=== PATIENT | female | born 1940 | race Asian ===

== ENCOUNTER 2017-02-22 05:04 | Inpatient (IN) | payer MEDICARE, OTHER ==
[~2017-02-22] VITALS: Ht 157.5 cm; Wt 61.9 kg
[~2017-02-22 05:04] MED LIST: HYDR10TA31 PO
[2017-02-22] MEDS ORDERED: XALA2.5OS OU (05:15)
[2017-02-22] MEDS ORDERED: LINA5TAB PO (05:15)
[2017-02-22] MEDS ORDERED: MECL12.585 PO (05:15)
[2017-02-22] MEDS ORDERED: ASPI-556 PO (05:15)
[2017-02-22] MEDS ORDERED: NITR.4 SL (05:15)
[2017-02-22] MEDS ORDERED: MELO-267 PO (05:15)
[2017-02-22] MEDS ORDERED: LOSA100T29 PO (05:15)
[2017-02-22] MEDS ORDERED: ATOR40TA71 PO (05:15)
[2017-02-22] MEDS ORDERED: VITAD1000 PO (05:15)
[2017-02-22] MEDS ORDERED: CARV6.2534 PO (05:15)
[2017-02-22] MEDS ORDERED: AMLO-511 PO (05:15)
[2017-02-22 05:18] LABS: GLUCOSE COMMENT 1 Doctor Notified; GLUCOSE,POINT OF CARE 213 MG/DL (70-110)
[2017-02-22] MEDS ORDERED: ACETAMINOPHEN 1000 MG/ISO-OSM 100 ML IV ONE (06:30)
[2017-02-22] MEDS ORDERED: SODIUM CHLORIDE 0.9% 1,000 ML IV ONE (06:30)
[2017-02-22 07:03] LABS: HEMATOCRIT 37.1 % (36-46); HEMOGLOBIN 12.5 g/dL (12.0-16.0); MEAN CORPUSCULAR HEMOGLOBIN 29.9 pg (26.0-34.0); MEAN CORPUSCULAR HGB CONC 33.7 G/dL (31.0-37.0); MEAN CORPUSCULAR VOLUME 89 fL (80-100); PLATELET COUNT (AUTO) 226 K/uL (150-450); RED BLOOD CELL COUNT(AUTO) 4.19 MIL/uL (4.00-5.20); RED CELL DISTRIBUTION WIDTH 14.6 % (11.5-14.5); WHITE BLOOD COUNT (AUTO) 13.2 K/uL (4.5-11.0)
[2017-02-22 07:12] LABS: APPEARANCE,URINE CLEAR (CLEAR); GLUCOSE, URINE (UA) NEGATIVE (NEGATIVE); KETONES,URINE NEGATIVE (NEGATIVE); LEUKOCYTE ESTERASE ,URINE NEGATIVE (NEGATIVE); OCCULT BLOOD,URINE TRACE (NEGATIVE); PH,URINE 6.5 (5.0-8.0); PROTEIN,URINE TRACE (NEGATIVE)
[2017-02-22 07:14] LABS: CALCIUM, TOTAL 8.1 mg/dL (8.8-10.5); CREATININE 0.91 mg/dL (0.60-1.30); POTASSIUM 3.2 mmol/L (3.5-5.1)
[2017-02-22 07:15] LABS: ADD UA MICROSCOPIC YES
[2017-02-22 07:17] LABS: RBC,URINE 0-2 /HPF (0-2); SQUAMOUS EPITHELIAL CELL,UR Few /LPF (None Seen); WBC,URINE 0-2 /HPF (0-5)
[2017-02-22 07:20] LABS: ALBUMIN 3.4 g/dL (3.4-5.0); BILIRUBIN,TOTAL 0.6 mg/dL (0.1-1.0); TOTAL PROTEIN, SERUM 7.5 g/dL (6.4-8.2)
[2017-02-22 07:27] LABS: BAND NEUTROPHILS % (MANUAL) 9 % (1-5); LYMPHOCYTES % (MANUAL) 14 % (22-44); TOTAL CELLS COUNTED 100
[2017-02-22 07:28] LABS: RBC MORPHOLOGY COMMENT NORMAL RBC MORPH
[2017-02-22] MEDS ORDERED: FUROSEMIDE 40 MG/4 ML VIAL IVP ONE (07:45)
[2017-02-22] MEDS ORDERED: AZITHROMYCIN 500 MG/NS 250 ML IV ONE (07:45)
[2017-02-22] MEDS ORDERED: CefTRIAXone 1 GM/DEXTROSE 50 ML IV ONE (07:45)
[2017-02-22] MEDS ORDERED: MAGNESIUM HYDROXIDE SUSPENSION 30 ML UDCUP PO PRN (15:00)
[2017-02-22] MEDS ORDERED: MORPHINE SULFATE 2 MG/ML SYRINGE IVP PRN (15:00)
[2017-02-22] MEDS ORDERED: *CLINICAL-CEFTAROLINE DOSING CLINICAL ONE (15:00)
[2017-02-22] MEDS ORDERED: ZOLPIDEM TARTRATE 5 MG TABLET PO PRN (15:00)
[2017-02-22] MEDS ORDERED: ONDANSETRON HCL 4 MG/2 ML VIAL IVP PRN (15:00)
[2017-02-22] MEDS ORDERED: ACETAMINOPHEN 325 MG TABLET PO PRN (15:00)
[2017-02-22] MEDS ORDERED: HYDROCODONE/ACETAMINOPHEN 5-325 MG TABLET PO PRN (15:00)
[2017-02-22] MEDS ORDERED: MECLIZINE HCL 12.5 MG TABLET PO PRN (15:00)
[2017-02-22] MEDS ORDERED: BISACODYL 10 MG RECTAL RECTAL SUPPOSITORY PR PRN (15:00)
[2017-02-22] MEDS ORDERED: GuaiFENesin/D-METHORPHAN [SUGAR-FREE] 200-20MG/10 ML SYRUP UDCUP PO PRN (15:15)
[2017-02-22] MEDS: HydrALAZINE HCL 10 MG TABLET PO SCH ×2 (16:31→21:59)
[2017-02-22] MEDS: HEPARIN SODIUM,PORCINE 5,000 UNITS/ML VIAL SQ SCH ×2 (16:31→23:44)
[2017-02-22] MEDS: CEFTAROLINE FOSAMIL 400 MG in DEXTROSE 5%-WATER 250 ML IV SCH (16:31)
[2017-02-22 19:44] VITALS: BP 188/78
[2017-02-22] MEDS ORDERED: POTASSIUM CHLORIDE 20 MEQ ER TABLET PO PRN ×2 (20:15)
[2017-02-22] MEDS: FUROSEMIDE 20 MG/2 ML VIAL IVP SCH (21:10)
[2017-02-22] MEDS: DOCUSATE SODIUM 100 MG CAPSULE PO SCH (21:10)
[2017-02-22] MEDS: CARVEDILOL 6.25 MG TABLET PO SCH (21:10)
[2017-02-22 23:49] VITALS: BP 150/75
[2017-02-23] MEDS ORDERED: SODIUM CHLORIDE 0.9% 500 ML IV ONE (03:54)
[2017-02-23 04:00] VITALS: BP 157/73
[2017-02-23] MEDS: CEFTAROLINE FOSAMIL 400 MG in DEXTROSE 5%-WATER 250 ML IV SCH ×2 (04:19→15:07)
[2017-02-23 07:28] VITALS: BP 164/74
[2017-02-23] MEDS: FUROSEMIDE 20 MG/2 ML VIAL IVP SCH ×2 (07:57→20:17)
[2017-02-23] MEDS: HEPARIN SODIUM,PORCINE 5,000 UNITS/ML VIAL SQ SCH ×2 (07:57→15:18)
[2017-02-23] MEDS: DOCUSATE SODIUM 100 MG CAPSULE PO SCH ×2 (07:58→20:16)
[2017-02-23] MEDS: CHOLECALCIFEROL (VIT D3) 1,000 UNITS TABLET PO SCH (08:14)
[2017-02-23] MEDS: ASPIRIN 81 MG EC TABLET PO SCH (08:14)
[2017-02-23] MEDS: HydrALAZINE HCL 10 MG TABLET PO SCH ×4 (08:15→20:16)
[2017-02-23] MEDS: PANTOPRAZOLE SODIUM 40 MG DR TABLET PO SCH (08:15)
[2017-02-23] MEDS: ATORVASTATIN CALCIUM 40 MG TABLET PO SCH (08:15)
[2017-02-23 09:54] VITALS: BP 139/68
[2017-02-23] MEDS: AmLODIPine BESYLATE 5 MG TABLET PO SCH (10:51)
[2017-02-23] MEDS: CARVEDILOL 6.25 MG TABLET PO SCH ×2 (10:51→20:17)
[2017-02-23 11:27] VITALS: BP 128/53
[2017-02-23 15:33] VITALS: BP 160/79
[2017-02-23] MEDS ORDERED: IOVERSOL 350 MG/ML 100 ML VIAL ONE (16:24)
[2017-02-23] MEDS ORDERED: SODIUM CHLORIDE 0.9% 100 ML ONE (16:24)
[2017-02-23 19:13] VITALS: BP 148/65
[2017-02-24 00:21] VITALS: BP 158/75
[2017-02-24] MEDS: HEPARIN SODIUM,PORCINE 5,000 UNITS/ML VIAL SQ SCH ×2 (00:41→08:51)
[2017-02-24 04:29] VITALS: BP 140/64
[2017-02-24] MEDS: CEFTAROLINE FOSAMIL 400 MG in DEXTROSE 5%-WATER 250 ML IV SCH (05:02)
[2017-02-24 07:37] VITALS: BP 153/81
[2017-02-24] MEDS: FUROSEMIDE 20 MG/2 ML VIAL IVP SCH (08:47)
[2017-02-24] MEDS: PANTOPRAZOLE SODIUM 40 MG DR TABLET PO SCH (08:47)
[2017-02-24] MEDS: CHOLECALCIFEROL (VIT D3) 1,000 UNITS TABLET PO SCH (08:47)
[2017-02-24] MEDS: ATORVASTATIN CALCIUM 40 MG TABLET PO SCH (08:47)
[2017-02-24] MEDS: HydrALAZINE HCL 10 MG TABLET PO SCH ×2 (08:47→13:35)
[2017-02-24] MEDS: ASPIRIN 81 MG EC TABLET PO SCH (08:47)
[2017-02-24] MEDS: DOCUSATE SODIUM 100 MG CAPSULE PO SCH (08:51)
[2017-02-24 08:54] VITALS: BP 102/63
[2017-02-24 11:29] VITALS: BP 136/70
[2017-02-24] MEDS: AmLODIPine BESYLATE 5 MG TABLET PO SCH (11:54)
[2017-02-24] MEDS: CARVEDILOL 6.25 MG TABLET PO SCH (11:54)
[2017-02-24 12:41] LABS: BASOPHILS % (AUTO) 0.1 % (0.0-2.0); EOSINOPHILS % (AUTO) 3.3 % (1.0-6.0); HEMATOCRIT 42.8 % (36-46); HEMOGLOBIN 13.7 g/dL (12.0-16.0); LYMPHOCYTES # (AUTO) 2.1 K/uL (1.0-4.8); LYMPHOCYTES % (AUTO) 21.3 % (22.0-44.0); MEAN CORPUSCULAR HEMOGLOBIN 28.8 pg (26.0-34.0); MEAN CORPUSCULAR VOLUME 90 fL (80-100); MONOCYTES # (AUTO) 0.6 K/uL (0.1-1.0); MONOCYTES % (AUTO) 5.8 % (2.0-9.0); NEUTROPHILS # (AUTO) 6.8 K/uL (1.8-7.7); NEUTROPHILS % (AUTO) 69.5 % (40.0-70.0); PLATELET COUNT (AUTO) 280 K/uL (150-450); RED BLOOD CELL COUNT(AUTO) 4.75 MIL/uL (4.00-5.20); RED CELL DISTRIBUTION WIDTH 15.5 % (11.5-14.5); WHITE BLOOD COUNT (AUTO) 9.8 K/uL (4.5-11.0)
[2017-02-24 13:01] LABS: CALCIUM, TOTAL 8.8 mg/dL (8.8-10.5); CREATININE 0.94 mg/dL (0.60-1.30); POTASSIUM 3.8 mmol/L (3.5-5.1)
[2017-02-24] MEDS ORDERED: FURO-152 PO (13:22)
[2017-02-24] MEDS ORDERED: POTA8CAP10 PO (13:23)
[2017-02-25] MEDS ORDERED: FUROSEMIDE 20 MG TABLET PO SCH (09:00)
== END 2017-02-24 14:10 | disposition home or self-care (01) | DRG 291 ==
LOC: EMS 05:05 → 5N 17:20
PROVIDERS: ADMIT Internal Medicine; ATTEND Internal Medicine
DX: I50.33 Acute on chronic diastolic (congestive) heart failure (principal); J18.9 Pneumonia, unspecified organism; J96.90 Respiratory failure, unspecified, unspecified whether with hypoxia or hypercapnia; I11.0 Hypertensive heart disease with heart failure; E11.9 Type 2 diabetes mellitus without complications; E78.5 Hyperlipidemia, unspecified; E87.6 Hypokalemia; I25.10 Atherosclerotic heart disease of native coronary artery without angina pectoris; E78.00 Pure hypercholesterolemia, unspecified; Z79.82 Long term (current) use of aspirin; Z79.899 Other long term (current) drug therapy
CPT/HCPCS: 71260; 82962; 83605; 84132; 87040; 93005; 93306; 96365; 96366; 96367; 96368; 96375; 99285; J0131; J0456; J0696; J0712; J1644; J1940; J7030; J7040; J7050; J7060

== ENCOUNTER 2017-06-16 06:35 | Emergency (ER) | payer MEDICARE ==
[~2017-06-16] VITALS: Ht 149.9 cm; Wt 63.6 kg
[~2017-06-16 06:35] MED LIST changes: +AMLO-511 PO; +ASPI-556 PO; +ATOR40TA71 PO; +CARV6.2534 PO; +FURO-152 PO; +LINA5TAB PO; +LOSA100T29 PO; +MECL12.585 PO; +MELO-267 PO; +NITR.4 SL; +POTA8CAP10 PO; +VITAD1000 PO; +XALA2.5OS OU
[2017-06-16] MEDS ORDERED: ACETAMINOPHEN 325 MG TABLET PO ONE (07:30)
[2017-06-16 08:02] VITALS: BP 165/72
== END 2017-06-16 08:43 | disposition home or self-care (01) ==
LOC: EMS 06:36
DX: M16.12 Unilateral primary osteoarthritis, left hip (principal); I10 Essential (primary) hypertension; I25.10 Atherosclerotic heart disease of native coronary artery without angina pectoris; E11.9 Type 2 diabetes mellitus without complications; E78.00 Pure hypercholesterolemia, unspecified; Z79.82 Long term (current) use of aspirin
CPT/HCPCS: 73503; 99284

== ENCOUNTER 2018-01-31 13:12 | Emergency (ER) | payer MEDICARE ==
[~2018-01-31] VITALS: Ht 149.9 cm; Wt 54.5 kg
[~2018-01-31 13:12] MED LIST changes: +MELO-108 PO; -MELO-267 PO
[2018-01-31 13:27] LABS: GLUCOSE,POINT OF CARE 113 MG/DL (70-110)
[2018-01-31] MEDS ORDERED: ACETAMINOPHEN 325 MG TABLET PO ONE (15:00)
[2018-01-31 16:30] LABS: INFLUENZA TYPE A NEGATIVE FOR TYPE A (NEGATIVE); INFLUENZA TYPE B NEGATIVE FOR TYPE B (NEGATIVE)
[2018-01-31 16:32] VITALS: BP 138/66
== END 2018-01-31 16:38 | disposition home or self-care (01) ==
LOC: EMS 13:12
DX: J06.9 Acute upper respiratory infection, unspecified (principal); E78.00 Pure hypercholesterolemia, unspecified; I10 Essential (primary) hypertension; I25.10 Atherosclerotic heart disease of native coronary artery without angina pectoris; Z79.82 Long term (current) use of aspirin; Z79.899 Other long term (current) drug therapy
CPT/HCPCS: 71046; 82962; 87804; 99285

== ENCOUNTER 2019-07-11 08:38 | Emergency (ER) | payer MEDICARE ==
[~2019-07-11] VITALS: Ht 149.9 cm; Wt 50.0 kg
[~2019-07-11 08:38] MED LIST changes: -AMLO-511 PO; +AMLO5TAB9 PO; +CHOL100018 PO; -LOSA100T29 PO; +LOSA100T58 PO; -NITR.4 SL; +NITR0.4T52 SL; -POTA8CAP10 PO; +POTA8CAP20 PO; -VITAD1000 PO
[2019-07-11] MEDS ORDERED: VALS160T2 PO (08:53)
[2019-07-11] MEDS ORDERED: AMLO10TA7 PO (08:53)
[2019-07-11] MEDS ORDERED: LINA5TAB PO (08:53)
[2019-07-11] MEDS ORDERED: HYDR25TA84 PO (08:53)
[2019-07-11] MEDS ORDERED: ATOR40TA28 PO (08:53)
[2019-07-11] MEDS ORDERED: CARV12 PO (08:53)
[2019-07-11] MEDS ORDERED: ISOS20TA7 PO (08:53)
[2019-07-11 09:02] LABS: GLUCOSE,POINT OF CARE 153 MG/DL (70-110)
[2019-07-11 09:40] LABS: BASOPHILS % (AUTO) 0.4 % (0.0-2.0); EOSINOPHILS % (AUTO) 1.6 % (1.0-6.0); HEMATOCRIT 38.2 % (36-46); HEMOGLOBIN 12.4 g/dL (12.0-16.0); LYMPHOCYTES % (AUTO) 10.7 % (22.0-44.0); MEAN CORPUSCULAR HEMOGLOBIN 34.7 pg (26.0-34.0); MEAN CORPUSCULAR HGB CONC 32.5 G/dL (31.0-37.0); MEAN CORPUSCULAR VOLUME 107 fL (80-100); MONOCYTES # (AUTO) 0.4 K/uL (0.1-1.0); MONOCYTES % (AUTO) 4.4 % (2.0-9.0); NEUTROPHILS # (AUTO) 7.9 K/uL (1.8-7.7); NEUTROPHILS % (AUTO) 82.9 % (40.0-70.0); PLATELET COUNT (AUTO) 245 K/uL (150-450); RED BLOOD CELL COUNT(AUTO) 3.58 MIL/uL (4.00-5.20); RED CELL DISTRIBUTION WIDTH 15.1 % (11.5-14.5)
[2019-07-11 09:52] LABS: CALCIUM, TOTAL 8.9 mg/dL (8.8-10.5); CREATININE 1.21 mg/dL (0.60-1.30); POTASSIUM 3.9 mmol/L (3.5-5.1)
[2019-07-11] MEDS ORDERED: DiphenhydrAMINE HCL 50 MG/ML VIAL IVP ONE (10:00)
[2019-07-11] MEDS ORDERED: METOCLOPRAMIDE HCL 5 MG/ML 2 ML VIAL IVP ONE (10:00)
[2019-07-11] MEDS ORDERED: ACETAMINOPHEN 500 MG TABLET PO ONE (10:00)
[2019-07-11] MEDS ORDERED: DEXAMETHASONE SOD PHOS 4 MG/ML 5 ML VIAL IVP ONE (10:00)
[2019-07-11] MEDS ORDERED: SODIUM CHLORIDE 0.9% 1,000 ML IV ONE (10:00)
[2019-07-11 10:15] LABS: ALBUMIN 4.1 g/dL (3.4-5.0); BILIRUBIN,TOTAL 0.7 mg/dL (0.1-1.0); MAGNESIUM 2.1 mg/dL (1.80-2.40); TOTAL PROTEIN, SERUM 7.9 g/dL (6.4-8.2)
[2019-07-11] MEDS ORDERED: IOVERSOL 350 MG/ML 100 ML VIAL ONE (10:49)
[2019-07-11] MEDS ORDERED: SODIUM CHLORIDE 0.9% 100 ML ONE (10:50)
[2019-07-11 11:04] LABS: APPEARANCE,URINE CLOUDY (CLEAR); GLUCOSE, URINE (UA) NEGATIVE (NEGATIVE); KETONES,URINE TRACE mg/dL (NEGATIVE); LEUKOCYTE ESTERASE ,URINE MODERATE (NEGATIVE); NITRATE,URINE NEGATIVE (NEGATIVE); OCCULT BLOOD,URINE NEGATIVE (NEGATIVE); PH,URINE 5.5 (5.0-8.0); PROTEIN,URINE TRACE (NEGATIVE)
[2019-07-11 11:07] LABS: BILIRUBIN,URINE PRELIM. POSITIVE (NEGATIVE)
[2019-07-11 11:18] LABS: BACTERIA,URINE None Seen /HPF (None Seen); RBC,URINE None Seen /HPF (0-2); SQUAMOUS EPITHELIAL CELL,UR Few /LPF (None Seen)
[2019-07-11 15:27] VITALS: BP 113/71
[2019-07-11] MEDS ORDERED: CEPHALEXIN MONOHYDRATE 500 MG CAPSULE PO ONE (15:30)
== END 2019-07-11 15:38 | disposition home or self-care (01) ==
LOC: EMS 08:40
DX: I65.02 Occlusion and stenosis of left vertebral artery (principal); N39.0 Urinary tract infection, site not specified; R51 Headache; I10 Essential (primary) hypertension; E11.9 Type 2 diabetes mellitus without complications; E78.00 Pure hypercholesterolemia, unspecified; I25.10 Atherosclerotic heart disease of native coronary artery without angina pectoris; Z79.82 Long term (current) use of aspirin; Z79.899 Other long term (current) drug therapy
CPT/HCPCS: 36415; 70496; 70498; 80053; 81001; 82550; 82962; 83735; 84484; 85025; 87086; 87186; 96361; 96374; 96375; 99284; J1100; J1200; J2765; J7050; Q9967

== ENCOUNTER 2020-02-22 04:57 | Emergency (ER) | payer MEDICARE ==
[~2020-02-22] VITALS: Ht 160 cm; Wt 54.5 kg
[~2020-02-22 04:57] MED LIST changes: +AMLO10TA7 PO; -AMLO5TAB9 PO; +ATOR40TA28 PO; -ATOR40TA71 PO; +CARV12 PO; -CARV6.2534 PO; -CHOL100018 PO; -FURO-152 PO; -HYDR10TA31 PO; +HYDR25TA84 PO; +ISOS20TA7 PO; -LOSA100T58 PO; -MECL12.585 PO; -MELO-108 PO; -POTA8CAP20 PO; +VALS160T2 PO; -XALA2.5OS OU
[2020-02-22] MEDS ORDERED: ONDANSETRON HCL 4 MG/2 ML VIAL IVP ONE (05:45)
[2020-02-22] MEDS ORDERED: MECLIZINE HCL 25 MG TABLET PO ONE (05:45)
[2020-02-22] MEDS ORDERED: ACETAMINOPHEN 500 MG TABLET PO ONE ×2 (05:45→06:30)
[2020-02-22 05:57] LABS: BASOPHILS % (AUTO) 0.4 % (0.0-2.0); EOSINOPHILS % (AUTO) 1.9 % (1.0-6.0); HEMATOCRIT 33.3 % (36-46); HEMOGLOBIN 11.2 g/dL (12.0-16.0); LYMPHOCYTES % (AUTO) 11.4 % (22.0-44.0); MEAN CORPUSCULAR HEMOGLOBIN 35.3 pg (26.0-34.0); MEAN CORPUSCULAR HGB CONC 33.6 G/dL (31.0-37.0); MEAN CORPUSCULAR VOLUME 105 fL (80-100); MONOCYTES # (AUTO) 0.5 K/uL (0.1-1.0); MONOCYTES % (AUTO) 5.3 % (2.0-9.0); PLATELET COUNT (AUTO) 239 K/uL (150-450); RED BLOOD CELL COUNT(AUTO) 3.17 MIL/uL (4.00-5.20); RED CELL DISTRIBUTION WIDTH 14.6 % (11.5-14.5)
[2020-02-22 06:18] LABS: ALANINE AMINOTRANSFERASE 21 U/L (12-78); ALBUMIN 3.7 g/dL (3.4-5.0); ALKALINE PHOSPHATASE 63 U/L (46-116); ANION GAP 7 mmol/L (8-16); ASPARTATE AMINOTRANSFERASE 15 U/L (15-37); BILIRUBIN,TOTAL 0.4 mg/dL (0.1-1.0); CALCIUM, TOTAL 8.4 mg/dL (8.8-10.5); CARBON DIOXIDE 29 mmol/L (22-29); CHLORIDE 104 mmol/L (98-107); CREATININE 0.89 mg/dL (0.60-1.30); GLOMERULAR FILTR. RATE CALC > 60 mL/min (>60); GLUCOSE,RANDOM 145 mg/dL (70-110); POTASSIUM 3.9 mmol/L (3.5-5.1); SODIUM SERUM 140 mmol/L (136-145); TOTAL PROTEIN, SERUM 6.9 g/dL (6.4-8.2); UREA NITROGEN, BLOOD 12 mg/dL (7-18)
[2020-02-22 08:57] LABS: APPEARANCE,URINE CLEAR (CLEAR); BILIRUBIN,URINE NEGATIVE (NEGATIVE); GLUCOSE, URINE (UA) NEGATIVE (NEGATIVE); KETONES,URINE NEGATIVE (NEGATIVE); LEUKOCYTE ESTERASE ,URINE SMALL (NEGATIVE); NITRATE,URINE NEGATIVE (NEGATIVE); OCCULT BLOOD,URINE NEGATIVE (NEGATIVE); PROTEIN,URINE NEGATIVE (NEGATIVE); UROBILINOGEN,URINE 0.2 mg/dL (<=1.0)
[2020-02-22 09:23] VITALS: BP 115/59
[2020-02-22 09:25] LABS: RBC,URINE None Seen /HPF (0-2); WBC,URINE 0-2 /HPF (0-5)
[2020-02-22 09:26] LABS: RENAL EPITHELIAL CELLS,URINE Rare /LPF (None Seen); SQUAMOUS EPITHELIAL CELL,UR Few /LPF (None Seen)
[2020-02-22 09:42] LABS: BACTERIA,URINE None Seen /HPF (None Seen)
[2020-02-23] MEDS ORDERED: MECL25TA39 PO (17:51)
== END 2020-02-22 10:12 | disposition home or self-care (01) ==
LOC: EMS 04:58
DX: S00.93XA Contusion of unspecified part of head, initial encounter (principal); S10.93XA Contusion of unspecified part of neck, initial encounter; M54.2 Cervicalgia; I25.10 Atherosclerotic heart disease of native coronary artery without angina pectoris; E11.9 Type 2 diabetes mellitus without complications; E78.00 Pure hypercholesterolemia, unspecified; I10 Essential (primary) hypertension; Z79.82 Long term (current) use of aspirin; W18.30XA Fall on same level, unspecified, initial encounter; Y93.89 Activity, other specified; Y92.098 Other place in other non-institutional residence as the place of occurrence of the external cause; Y99.8 Other external cause status
CPT/HCPCS: 36415; 70450; 71045; 72125; 80053; 81001; 83880; 84484; 85025; 93005; 96374; 99285; J2405

== ENCOUNTER 2020-02-23 17:35 | Emergency (ER) | payer MEDICARE ==
[~2020-02-23] VITALS: Ht 154.9 cm; Wt 63.6 kg
[2020-02-23] MEDS ORDERED: MECL25TA39 PO (17:51)
[2020-02-23 19:31] LABS: BASOPHILS % (AUTO) 0.3 % (0.0-2.0); EOSINOPHILS % (AUTO) 2.9 % (1.0-6.0); HEMATOCRIT 39.6 % (36-46); LYMPHOCYTES # (AUTO) 1.4 K/uL (1.0-4.8); LYMPHOCYTES % (AUTO) 17.4 % (22.0-44.0); MEAN CORPUSCULAR HEMOGLOBIN 34.8 pg (26.0-34.0); MEAN CORPUSCULAR VOLUME 106 fL (80-100); MONOCYTES # (AUTO) 0.5 K/uL (0.1-1.0); MONOCYTES % (AUTO) 6.3 % (2.0-9.0); NEUTROPHILS # (AUTO) 6.1 K/uL (1.8-7.7); NEUTROPHILS % (AUTO) 73.1 % (40.0-70.0); PLATELET COUNT (AUTO) 266 K/uL (150-450); RED BLOOD CELL COUNT(AUTO) 3.75 MIL/uL (4.00-5.20); RED CELL DISTRIBUTION WIDTH 14.5 % (11.5-14.5)
[2020-02-23 19:43] LABS: ANION GAP 9 mmol/L (8-16); CALCIUM, TOTAL 9.4 mg/dL (8.8-10.5); CARBON DIOXIDE 28 mmol/L (22-29); CHLORIDE 105 mmol/L (98-107); CREATININE 0.86 mg/dL (0.60-1.30); GLUCOSE,RANDOM 105 mg/dL (70-110); POTASSIUM 3.8 mmol/L (3.5-5.1); SODIUM SERUM 142 mmol/L (136-145); UREA NITROGEN, BLOOD 11 mg/dL (7-18)
[2020-02-23 19:45] LABS: GLOMERULAR FILTR. RATE CALC > 60 mL/min (>60)
[2020-02-23 20:08] LABS: ALANINE AMINOTRANSFERASE 23 U/L (12-78); ALBUMIN 4.1 g/dL (3.4-5.0); ALKALINE PHOSPHATASE 70 U/L (46-116); ASPARTATE AMINOTRANSFERASE 15 U/L (15-37); BILIRUBIN,TOTAL 0.5 mg/dL (0.1-1.0); CREATINE KINASE, TOTAL ONLY 112 U/L (26-192); TOTAL PROTEIN, SERUM 8.3 g/dL (6.4-8.2)
[2020-02-23] MEDS: METOCLOPRAMIDE HCL 5 MG/ML 2 ML VIAL IVP ONE (21:41)
[2020-02-23] MEDS: DEXAMETHASONE SOD PHOS 4 MG/ML 5 ML VIAL IVP ONE (21:42)
[2020-02-23] MEDS: KETOROLAC TROMETHAMINE 30 MG/ML VIAL IVP ONE (21:42)
[2020-02-23] MEDS: DiphenhydrAMINE HCL 50 MG/ML VIAL IVP ONE (21:42)
[2020-02-23] MEDS: SODIUM CHLORIDE 0.9% 1,000 ML IV ONE (21:43)
[2020-02-23] MEDS: ACETAMINOPHEN 500 MG TABLET PO ONE (22:41)
[2020-02-23 22:58] VITALS: BP 139/75
== END 2020-02-23 23:09 | disposition home or self-care (01) ==
LOC: EMS 17:43
DX: S09.90XA Unspecified injury of head, initial encounter (principal); I25.10 Atherosclerotic heart disease of native coronary artery without angina pectoris; E11.9 Type 2 diabetes mellitus without complications; E78.00 Pure hypercholesterolemia, unspecified; I10 Essential (primary) hypertension; Z79.82 Long term (current) use of aspirin; W19.XXXA Unspecified fall, initial encounter; Y93.89 Activity, other specified; Y92.89 Other specified places as the place of occurrence of the external cause; Y99.8 Other external cause status
CPT/HCPCS: 36415; 70450; 71045; 80053; 82550; 82962; 83735; 84484; 85025; 93005; 96374; 96375; 99285; J1100; J1200; J1885; J2765; J7030; 82948